=== PATIENT | male | born 1955 | race Caucasian/White ===

== ENCOUNTER 2016-10-08 08:00 | Day surgery (SDC) | payer OTHER ==
[2016-10-04 15:47] VITALS: BMI 31.9
[2016-10-08] MEDS ORDERED: DESFLURANE GAS 240 ML BOTTLE IH ONE (10:28)
[2016-10-08] MEDS ORDERED: IBUPROFEN 800 MG/8 ML IJ IVPB ONE (10:28)
[2016-10-08] MEDS ORDERED: BUPIVACAINE HCL/PF 0.5% (5MG/ML) 10 ML VIAL ONE (10:37)
--- NOTE | 2016-10-08 10:41 | HP ---
History & Physical Update - History History: No Change - Physical Physical: No Change - Assessment Assessment: No Change - Plan Plan: No Change
[2016-10-08] MEDS ORDERED: ROCURONIUM BROMIDE 50 MG/5 ML VIAL ONE (10:50)
[2016-10-08] MEDS ORDERED: PROPOFOL 20 ML ONE (10:50)
[2016-10-08] MEDS ORDERED: MIDAZOLAM HCL 2 MG/2 ML SINGLE DOSE VIAL ONE (10:51)
[2016-10-08] MEDS ORDERED: ceFAZolin SODIUM 1 GM VIAL ONE (11:16)
[2016-10-08] MEDS ORDERED: ceFAZolin SODIUM 1 GM VIAL IVPB ONE (11:18)
[2016-10-08] MEDS ORDERED: BUPIVACAINE HCL/PF 0.5% (5MG/ML) 10 ML VIAL IJ ONE (11:24)
[2016-10-08] MEDS ORDERED: GLYCOPYRROLATE 0.2 MG/1 ML VIAL ONE (11:50)
[2016-10-08] MEDS ORDERED: NEOSTIGMINE METHYLSULFATE 0.5 MG/ML - 10 ML MDV ONE (11:51)
[2016-10-08] MEDS ORDERED: oxyCODONE HCL 5 MG TABLET PO PRN (12:11)
[2016-10-08] MEDS ORDERED: ONDANSETRON 4 MG/2 ML VIAL IVPUSH PRN (12:11)
[2016-10-08] MEDS ORDERED: ACETAMINOPHEN 1000 MG/100 ML VIAL (NON FORMULARY) IVPB ONE (12:11)
[2016-10-08] MEDS ORDERED: LACTATED RINGERS SOLUTION 1,000 ML IV SCH (12:15)
[2016-10-08] MEDS ORDERED: ALBUTEROL SO4 0.083% IH SOL 2.5 MG/3 ML VIAL.NEB. NEB PRN (12:34)
[2016-10-08] MEDS ORDERED: ACETAMINOPHEN INJECTION 100 ML IVPB ONE (12:42)
[2016-10-08 14:11] VITALS: TEMP 97.8
[2016-10-08 15:50] VITALS: PULSE 77
[2016-10-08 15:54] VITALS: BP 117/60
--- NOTE | 2016-10-09 11:53 | OP ---
DATE OF OPERATION: 10/08/2016 PROCEDURE: Umbilical hernia repair with mesh. PREOPERATIVE DIAGNOSIS: Umbilical hernia. POSTOPERATIVE DIAGNOSIS: Umbilical hernia. SURGEON: Baltazar Whelan MD HOSPITAL COORDINATOR: CARLOS MANUEL Delong ANESTHESIA: General endotracheal. FINDINGS AND PROCEDURE: This is a 61-year-old male who presents with a bulge of the umbilicus which was about 3 cm in size, which was nonreducible. So, patient was advised elective umbilical hernia repair, and consent was obtained after discussing the risks, benefits, and alternatives to the procedure. Patient was brought to the operating room and placed in supine position. General endotracheal anesthesia was administered. The abdomen was prepped and draped in the usual sterile fashion. Using 0.5% Marcaine, local anesthesia was administered at the proposed incision site. A 3-cm vertical incision over the umbilicus was made using scalpel blade number 15 with dissection carried down to the subcutaneous tissue until the hernia sac was exposed. The further dissection was done using Bovie cautery around the hernia sac, down to the fascial defect. The hernia sac together with incarcerated small piece of omentum was amputated and ligated with Vicryl 0 ligature. The stump was then pushed back to the peritoneal cavity. The posterior abdominal wall was bluntly undermined using the forceps and the gauze. After that, a 2-1/2-inch diameter Ventralex ST hernia patch was deployed as an underlay mesh placement. The patch was anchored to each side of the fascia with Prolene 2-0 suture. This was also reinforced with single suture of Prolene 2-0 at the 12 o'clock and 6 o'clock position. After the deployment was deemed satisfactory, the wound was closed with interrupted dermal sutures using Vicryl 3-0 and continuous subcuticular suture using Biosyn 4-0. The wound closure was reinforced with Steri-Strips and covered with pressure dressing. The patient was successfully extubated and transferred to the postanesthesia care unit in satisfactory condition. Estimated blood loss was about 1 mL. Wound class clean. The patient received 2 g of Ancef prior to the start of the procedure. Tammy [id number]
--- NOTE | 2016-10-09 17:56 | PATH ---
Surgical Pathology Report Patient Name: MERCEDES WINN [facility]. Rec. #: [id number] /Age/Gender: 1955 (Age: 61) / M Account: [id number] Location: [facility] Taken: 10/08/2016 Received: 10/08/2016 Reported: 10/09/2016 Physicians: Baltazar Whelan M.D. Specimen(s) Received HERNIA SAC Clinical History Umbilical hernia Final Diagnosis HERNIA SAC, UMBILICAL HERNIA REPAIR: FOCALLY MESOTHELIUM LINED BENIGN FIBROMEMBRANOUS AND FIBROFATTY TISSUE WITH FOCI OF CHRONIC INFLAMMATION CONSISTENT WITH HERNIA SAC. Electronically Signed Keenan Roberson M.D. Gross Description Received in formalin labeled "hernia sac" is a 2.7 x 2.5 x 0.6 cm irregular portion of fibromembranous tissue with attached fat, consistent with a hernia sac. [employer] sections are submitted in one cassette. /10/08/2016 saudi/10/08/2016
--- NOTE | 2016-10-10 08:12 | SURG ---
Surgery Casey Saw Operator Note Casey Saw Operator: Coreen Stauffer PA-C Date of Service: 10/08/16 Diagnosis: umbilical hernia Procedure: umbilical hernia repair with mesh I was present for the entirety of the operative procedure. For further detail, please refer to operative report. Visit type - Case Type Case Type: Scheduled Admission - Emergency Emergency Visit: No - New patient This patient is new to me today: Yes Date on this admission: 10/10/16 - Critical Care Critical Care patient: No
== END 2016-10-08 15:30 | disposition home or self-care (01) ==
LOC: JASU-SURG 08:00
PROVIDERS: ATTEND Surgery
PROC: 0WUF0JZ Supplement Abdominal Wall with Synthetic Substitute, Open Approach (ICD-10-PCS; principal; 2016-10-08 11:00)
DX: K42.9 Umbilical hernia without obstruction or gangrene (principal); I10 Essential (primary) hypertension; E78.5 Hyperlipidemia, unspecified; I25.10 Atherosclerotic heart disease of native coronary artery without angina pectoris; K21.9 Gastro-esophageal reflux disease without esophagitis; Z95.5 Presence of coronary angioplasty implant and graft; J45.909 Unspecified asthma, uncomplicated; E11.9 Type 2 diabetes mellitus without complications
CPT/HCPCS: 88302-TC; 94760

== ENCOUNTER 2017-07-27 09:35 | Emergency (ER) | payer OTHER ==
[2017-07-27 09:55] VITALS: BP 159/92; PULSE 80; TEMP 98.7; BMI 31.9
--- NOTE | 2017-07-27 10:12 | PDOC ---
History of Present Illness - General Chief Complaint: Respiratory Stated Complaint: COUGH, SOB Time Seen by Provider: 07/27/17 10:02 History Source: Patient Exam Limitations: No Limitations (61y/o F with cough, sorethroat and nasal congestion X 2 days) Past History - Travel Traveled outside of the country in the last 30 days: No Close contact w/someone who was outside of country & ill: No - Past Medical History Allergies/Adverse Reactions: Allergies Allergy/AdvReac Type Severity Reaction Status Date / Time No Known Allergies Allergy Verified 07/27/17 09:47 Home Medications: Ambulatory Orders Amlodipine Besylate [Norvasc] 5 mg PO DAILY #0 tablet 04/04/11 Aspirin [Aspirin EC] 81 mg PO DAILY #0 tab.chew 05/29/11 Clopidogrel Bisulfate [Plavix -] 75 mg PO DAILY #0 tablet 05/29/11 Insulin (Levemir) [Levemir Flexpen -] 30 units SQ BID #0 units 05/29/11 Metoprolol Succinate [Toprol XL -] 25 mg PO DAILY #0 tab.sr.24h 05/29/11 Albuterol Sulfate [Proair Respiclick] 90 mcg IH Q6H 10/04/16 Insulin (Novolog) [Novolog Flexpen -] 36 units SQ ACHS 10/08/16 traMADol HCL [Ultram] 50 mg PO Q6H PRN #20 tablet MDD 4 10/08/16 Benzonatate [Tessalon Pearls -] 100 mg PO TID #21 capsule 07/27/17 Benzonatate [Tessalon Pearls -] 100 mg PO TID #21 capsule 07/27/17 Cetirizine HCl 10 mg PO DAILY #30 tablet 07/27/17 Loratadine 10 mg PO DAILY 30 Days #30 tab.rapdis 07/27/17 Olopatadine HCl [Patanol] 5 ml OP BID 30 Days #1 bottle 07/27/17 Olopatadine HCl [Patanol] 5 ml OP BID 30 Days #1 bottle 07/27/17 Anemia: No Asthma: Yes Cancer: No Cardiac Disorders: Yes (DC 2006) CVA: No COPD: No CHF: No Dementia: No Diabetes: Yes GI Disorders: No Disorders: No HTN: Yes Hypercholesterolemia: Yes Liver Disease: No Seizures: No Thyroid Disease: No - Surgical History Cardiac Surgery: Yes (X 3 STENTS) Orthopedic Surgery: Yes (BILAT SHOULDERS) - Suicide/Smoking/Psychosocial Hx Smoking Status: No Smoking History: Never smoked Number of Cigarettes Smoked Daily: 0 Hx Alcohol Use: No Drug/Substance Use Hx: No Substance Use Type: None Review of Systems - Review of Systems Is the patient limited Spanish proficient: No Constitutional: No: Chills, Fever HEENTM: Yes: Tearing (program), Throat Pain. No: See HPI, Eye Pain, Blurred Vision, Recent change in vision, Double Vision, Ear Pain ( underwent), Throat Swelling Respiratory: Yes: Cough, Productive cough. No: Orthopnea, Shortness of Breath ( 19), SOB with Exertion (location), SOB at Rest, Stridor, Wheezing Cardiac (ROS): No: Chest Pain, Irregular Heart Rate, Lightheadedness, Palpitations, Syncope ABD/GI: No: Abdominal Distended, Abd. Pain w/ defecation, Blood Streaked Bowels , Constipated : No: Burning, Dysuria *Physical Exam - Vital Signs Last Vital Signs Temp Pulse Resp BP Pulse Ox 98.7 F 80 18 159/92 99 07/27/17 09:45 07/27/17 09:45 07/27/17 09:45 07/27/17 09:45 07/27/17 09:45 - Physical Exam General Appearance: Yes: Nourished HEENT: positive: Tonsillar Erythema, Nasal Congestion (b/l conjunctiva injection ). negative: Pharyngeal Erythema, Tonsillar Exudate, Rhinorrhea Respiratory/Chest: positive: Lungs Clear, Normal Breath Sounds Cardiovascular: positive: Regular Rate, S1, S2 Gastrointestinal/Abdominal: positive: Normal Bowel Sounds Extremity: positive: Normal Capillary Refill Integumentary: positive: Normal Color, Dry Neurologic: positive: science faculty member II-XII NML intact, Fully Oriented, Alert Medical Decision Making - Medical Decision Making 07/27/17 10:11 Patient is a 61-year-old male with history of hypertension diabetes presents to the emergency room with productive cough sneezing nasal congestion and bilateral eye tearing for 2 days. Patient denies chest pain history of asthma, wheezing, CP or smoking 61y/o F with URI vs Allergic Rhinitis RS sent vss, pt otherwise well appearing, clear lungs antihistamine and tussive sent to pharmacy RS neg, salt water garble advised, motrin prn pain f/u with PCP for CXR if cough persist >5 days 07/27/17 10:32 07/27/17 10:49 *DC/Admit/Observation/Transfer Diagnosis at time of Disposition: Allergic rhinitis, URI, acute - Discharge Dispostion Disposition: HOME Condition at time of disposition: Stable - Prescriptions Prescriptions: Benzonatate [Tessalon Pearls -] 100 mg PO TID #21 capsule Benzonatate [Tessalon Pearls -] 100 mg PO TID #21 capsule Cetirizine HCl 10 mg PO DAILY #30 tablet Loratadine 10 mg PO DAILY 30 Days #30 tab.rapdis Olopatadine HCl [Patanol] 5 ml OP BID 30 Days #1 bottle Olopatadine HCl [Patanol] 5 ml OP BID 30 Days #1 bottle - Referrals Referrals: Julian Bain MD [Primary Care Provider] - - Patient Instructions Printed Discharge Instructions: Common Cold, Allergic Rhinitis Additional Instructions: I discussed the physical exam findings, ancillary test results and final diagnoses with the patient. I answered all of the patient's questions. The patient was satisfied with the care received and felt comfortable with the discharge plan and treatment plan. The patient will call their primary care physician within 24 hours to arrange follow-up and will return to the Emergency Department with any new, persistant or worsening symptoms. - Post Discharge Activity
--- NOTE | 2017-07-29 07:42 | PDOC ---
Patient Follow-up (Call Back) - Post ED Follow - Up Condition at time of discharge: Stable Disposition at time of original discharge: HOME Reason for Call Back: Abnwl. Microbiology (Throat culture pending organism. Rapid strep negative.)
== END 2017-07-27 10:44 | disposition home or self-care (01) ==
LOC: JERFT 09:35 → JER 09:35 → JERFT 10:44
DX: J30.9 Allergic rhinitis, unspecified (principal); J06.9 Acute upper respiratory infection, unspecified; I25.10 Atherosclerotic heart disease of native coronary artery without angina pectoris; I10 Essential (primary) hypertension; Z95.5 Presence of coronary angioplasty implant and graft; E11.9 Type 2 diabetes mellitus without complications; Z79.4 Long term (current) use of insulin; E78.00 Pure hypercholesterolemia, unspecified
CPT/HCPCS: 87070; 87077; 87430; 99281-25

== ENCOUNTER 2019-06-02 19:29 | Emergency (ER) | payer OTHER ==
[2019-06-02 19:59] VITALS: BP 179/90; PULSE 105; TEMP 98.2; BMI 31.4
--- NOTE | 2019-06-02 20:26 | PDOC ---
History of Present Illness - General Chief Complaint: Eye Problem Stated Complaint: EYE REDNESS Time Seen by Provider: 06/02/19 20:26 History Source: Patient - History of Present Illness Initial Comments: 06/02/19 20:40 Chief complaint: Exposure to dust Patient is 63-year-old male with a history of CAD, diabetes and hypertension who states he was cleaning his friend's attic, and he dropped something and the dust went up in his face. Patient states that his eyes were bothering him and he was coughing. He took a shower but his symptoms continue. Patient is not in any respiratory distress and is not having active coughing now. GENERAL/CONSTITUTIONAL: No fever, weakness. dizziness HEAD, EYES, EARS, NOSE AND THROAT: No change in vision. + Eye redness, no ear pain or discharge. No sore throat. CARDIOVASCULAR: No chest pain RESPIRATORY: No shortness of breath or cough GASTROINTESTINAL: No pain, nausea, vomiting, diarrhea or constipation GENITOURINARY: No dysuria MUSCULOSKELETAL: No neck or back pain SKIN: No rash NEUROLOGIC: No headache, vertigo, loss of consciousness, or loss of sensation. GENERAL: The patient is awake, alert, and fully oriented, in no acute distress. HEAD: Normal with no signs of trauma. EYES: Pupils equal, round and reactive to light, sclera anicteric, conjunctiva clear. Minimal redness to the distal eyelids bilaterally ENT: pharynx: no erythema, no exudate, uvula midline NECK: supple CHEST: clear, nontender, rr ABD: soft, nontender BACK: no tenderness or signs of injury EXTREMITIES: Normal range of motion, no edema. NEUROLOGICAL: Normal speech, normal gait. SKIN: Warm, Dry Past History - Past Medical History Allergies/Adverse Reactions: Allergies Allergy/AdvReac Type Severity Reaction Status Date / Time No Known Allergies Allergy Verified 06/02/19 19:59 Home Medications: Ambulatory Orders Amlodipine Besylate [Norvasc] 5 mg PO DAILY #0 tablet 04/04/11 Aspirin [Aspirin EC] 81 mg PO DAILY #0 tab.chew 05/29/11 Clopidogrel Bisulfate [Plavix -] 75 mg PO DAILY #0 tablet 05/29/11 Insulin (Levemir) [Levemir Flexpen -] 30 units SQ BID #0 units 05/29/11 Metoprolol Succinate [Toprol XL -] 25 mg PO DAILY #0 tab.sr.24h 05/29/11 Albuterol Sulfate [Proair Respiclick] 90 mcg IH Q6H 10/04/16 Insulin (Novolog) [Novolog Flexpen -] 36 units SQ ACHS 10/08/16 traMADol HCL [Ultram] 50 mg PO Q6H PRN #20 tablet MDD 4 10/08/16 Benzonatate [Tessalon Pearls -] 100 mg PO TID #21 capsule 07/27/17 Benzonatate [Tessalon Pearls -] 100 mg PO TID #21 capsule 07/27/17 Cetirizine HCl 10 mg PO DAILY #30 tablet 07/27/17 Loratadine 10 mg PO DAILY 30 Days #30 tab.rapdis 07/27/17 Olopatadine HCl [Patanol] 5 ml OP BID 30 Days #1 bottle 07/27/17 Olopatadine HCl [Patanol] 5 ml OP BID 30 Days #1 bottle 07/27/17 Anemia: No Asthma: Yes Cancer: No Cardiac Disorders: Yes ([place] 2006) CVA: No COPD: No CHF: No Dementia: No Diabetes: Yes GI Disorders: No Disorders: No HTN: Yes Hypercholesterolemia: Yes Liver Disease: No Seizures: No Thyroid Disease: No - Surgical History Cardiac Surgery: Yes (X 3 STENTS) Orthopedic Surgery: Yes (BILAT SHOULDERS) - Psycho Social/Smoking Cessation Hx Smoking Status: No Smoking History: Never smoked Have you smoked in the past 12 months: No Number of Cigarettes Smoked Daily: 0 Information on smoking cessation initiated: No Hx Alcohol Use: No Drug/Substance Use Hx: No Substance Use Type: None *Physical Exam - Vital Signs Last Vital Signs Temp Pulse Resp BP Pulse Ox 98.2 F 105 H 21 H 179/90 H 97 06/02/19 19:56 06/02/19 19:56 06/02/19 19:56 06/02/19 19:56 06/02/19 19:56 Medical Decision Making - Medical Decision Making 06/02/19 20:41 63-year-old male with history of diabetes, CAD, hypertension with exposure to dust while cleaning an attic. Patient took a shower but states his eyes continue to bother him. Patient states he has been coughing. Patient is not actively coughing now and has no signs of respiratory distress. Patient is driving home, cannot give Benadryl 2. We will put tetracaine in bilateral eyes to reduce discomfort. Given exposure, will give antibiotic ointment for the eyes. Will give patient supportive instructions for at home Discussed issues, findings, results, applicable medications and treatments and follow-up. All these were understood and all questions were answered Discharge - Discharge Information Problems reviewed: Yes Clinical Impression/Diagnosis: Environmental exposure Condition: Stable Disposition: HOME - Admission No - Follow up/Referral Referrals: Ramez Bain [Primary Care Provider] - - Patient Discharge Instructions Additional Instructions: Put the erythromycin ointment, half inch to both eyes, 3 times a day for the next 3 days. Follow-up with the alignment technician. You can take Claritin or Benadryl tonight for your symptoms at bedtime Return to the ER if worse, short of breath, any other concerns. Follow-up with your doctor - Post Discharge Activity
[2019-06-02] MEDS ORDERED: ERYTHROMYCIN 0.5% OPHTHALMIC OINTMENT 3.5 GM TUBE OU ONE (20:42)
[2019-06-02] MEDS ORDERED: ERYTHROMYCIN 0.5% OPHTHALMIC OINTMENT 3.5 GM TUBE ONE (20:43)
== END 2019-06-02 20:52 | disposition home or self-care (01) ==
LOC: JERFT 19:29
DX: Z77.29 Contact with and (suspected) exposure to other hazardous substances (principal); E11.9 Type 2 diabetes mellitus without complications; I25.10 Atherosclerotic heart disease of native coronary artery without angina pectoris; I10 Essential (primary) hypertension
CPT/HCPCS: 99283-25

== ENCOUNTER 2021-06-15 03:11 | Emergency (ER) | payer OTHER ==
[2021-06-15 03:45] VITALS: PULSE 83; TEMP 97.2; BMI 30.4
[2021-06-15 06:15] VITALS: BP 130/70
== END 2021-06-15 06:29 | disposition home or self-care (01) ==
LOC: JER 03:11
DX: I10 Essential (primary) hypertension (principal)
CPT/HCPCS: 99282-25

== ENCOUNTER 2022-12-23 07:43 | Inpatient (IN) | payer OTHER ==
[2022-12-23 07:50] VITALS: BMI 30.4
[2022-12-23 09:16] LABS: HEMOGLOBIN 14.5 GM/dL (11.7-16.9); MCH 32.1 pg (25.7-33.7); MCHC 34.4 g/dl (32.0-35.9); MEAN CELL VOLUME 93.3 fl (80-96); MEAN PLT VOLUME 8.4 fl (7.5-11.1); PLATELET COUNT 215 10^3/uL (134-434); RBC 4.51 M/mm3 (4.00-5.60)
[2022-12-23 09:21] LABS: INR 1.03 (0.83-1.09)
[2022-12-23 09:24] LABS: ACTIVATED PTT 27.7 SECONDS (25.2-36.5)
[2022-12-23] MEDS ORDERED: ACETAMINOPHEN 1000 MG/100 ML BAG IVPB ONE (09:28)
[2022-12-23 09:49] LABS: POTASSIUM 3.7 mmol/L (3.5-5.1)
[2022-12-23 09:52] LABS: ALBUMIN 3.6 g/dl (3.4-5.0); BLOOD UREA NITROGEN 10.4 mg/dL (7-18); CALCIUM 8.5 mg/dL (8.5-10.1); MAGNESIUM 1.9 mg/dL (1.8-2.4)
[2022-12-23 09:55] LABS: ANISOCYTOSIS 0; HELMET CELLS 0; HOWELL-JOLLY BODIES 0; MACROCYTOSIS 0; OVALOCYTE 0; ROULEAU 0; SICKELED CELLS 0; TARGET CELLS 0; TEAR DROP CELLS 0; TOXIC GRANULATION 0
[2022-12-23 09:56] LABS: BILIRUBIN,TOTAL 0.4 mg/dL (0.2-1)
[2022-12-23 09:57] LABS: CREATININE 0.7 mg/dL (0.55-1.3)
[2022-12-23] MEDS ORDERED: CLOPIDOGREL BISULFATE 75 MG TABLET (FP) PO SCH (14:45)
[2022-12-23] MEDS ORDERED: amLODIPine BESYLATE 5 MG TABLET (FP) PO SCH (14:45)
[2022-12-23] MEDS ORDERED: ASPIRIN COATED 81 MG TABLET.EC PO SCH (14:45)
[2022-12-23] MEDS ORDERED: metoPROLOL SUCCINATE 25 MG TAB.SR.24H (FP) PO SCH (14:45)
[2022-12-23] MEDS: amLODIPine BESYLATE 5 MG TABLET (FP) PO SCH (16:22)
[2022-12-23] MEDS: CLOPIDOGREL BISULFATE 75 MG TABLET (FP) PO SCH (16:22)
[2022-12-23] MEDS: ASPIRIN COATED 81 MG TABLET.EC PO SCH (16:22)
[2022-12-23] MEDS: metoPROLOL SUCCINATE 25 MG TAB.SR.24H (FP) PO SCH (16:22)
[2022-12-23] MEDS: ACETAMINOPHEN 325 MG TABLET (FP) PO PRN (17:11)
[2022-12-23] MEDS: INSULIN (LEVEMIR) 100 UNITS/ML UNITS SQ SCH (21:39)
[2022-12-24] MEDS: INSULIN (LEVEMIR) 100 UNITS/ML UNITS SQ SCH ×2 (06:50→21:53)
[2022-12-24 09:21] LABS: HEMATOCRIT 41.1 % (35.4-49); HEMOGLOBIN 14.4 GM/dL (11.7-16.9); MCH 32.5 pg (25.7-33.7); MCHC 34.9 g/dl (32.0-35.9); MEAN CELL VOLUME 92.9 fl (80-96); MEAN PLT VOLUME 8.4 fl (7.5-11.1); PLATELET COUNT 205 10^3/uL (134-434); RBC 4.42 M/mm3 (4.00-5.60); WHITE BLOOD COUNT 8.5 K/mm3 (4.0-10.0)
[2022-12-24 09:48] LABS: POTASSIUM 4.1 mmol/L (3.5-5.1)
[2022-12-24 09:54] LABS: ALBUMIN 3.4 g/dl (3.4-5.0); BLOOD UREA NITROGEN 13.3 mg/dL (7-18); CALCIUM 8.7 mg/dL (8.5-10.1)
[2022-12-24 09:56] LABS: CREATININE 0.7 mg/dL (0.55-1.3)
[2022-12-24 09:58] LABS: BILIRUBIN,TOTAL 0.4 mg/dL (0.2-1); TOT PROT 6.7 g/dl (6.4-8.2)
[2022-12-24 10:08] LABS: ANISOCYTOSIS 0; HELMET CELLS 0; HOWELL-JOLLY BODIES 0; MACROCYTOSIS 0; OVALOCYTE 0; ROULEAU 0; SICKELED CELLS 0; TARGET CELLS 0; TEAR DROP CELLS 0; TOXIC GRANULATION 0
[2022-12-24] MEDS: ENOXAPARIN NA (PORCINE) 40 MG/0.4 ML DISP.SYRIN SQ SCH (10:13)
[2022-12-24] MEDS: ASPIRIN COATED 81 MG TABLET.EC PO SCH (10:13)
[2022-12-24] MEDS: CLOPIDOGREL BISULFATE 75 MG TABLET (FP) PO SCH (10:14)
[2022-12-24] MEDS: amLODIPine BESYLATE 5 MG TABLET (FP) PO SCH (10:14)
[2022-12-24] MEDS: metoPROLOL SUCCINATE 25 MG TAB.SR.24H (FP) PO SCH (10:14)
[2022-12-24] MEDS: PANTOPRAZOLE 40 MG TABLET PO SCH (10:14)
[2022-12-25] MEDS: INSULIN (LEVEMIR) 100 UNITS/ML UNITS SQ SCH ×2 (06:07→23:19)
[2022-12-25 08:58] VITALS: RESP 18
[2022-12-25] MEDS: ENOXAPARIN NA (PORCINE) 40 MG/0.4 ML DISP.SYRIN SQ SCH (09:18)
[2022-12-25] MEDS: amLODIPine BESYLATE 5 MG TABLET (FP) PO SCH (09:19)
[2022-12-25] MEDS: CLOPIDOGREL BISULFATE 75 MG TABLET (FP) PO SCH (09:19)
[2022-12-25] MEDS: metoPROLOL SUCCINATE 25 MG TAB.SR.24H (FP) PO SCH (09:19)
[2022-12-25] MEDS: ASPIRIN COATED 81 MG TABLET.EC PO SCH (09:19)
[2022-12-25] MEDS: PANTOPRAZOLE 40 MG TABLET PO SCH (09:19)
[2022-12-25] MEDS: ACETAMINOPHEN 325 MG TABLET (FP) PO PRN (18:00)
[2022-12-25] MEDS ORDERED: ATORVASTATIN CA 20 MG TABLET (FP) PO SCH (22:00)
[2022-12-26] MEDS: INSULIN (LEVEMIR) 100 UNITS/ML UNITS SQ SCH (06:42)
[2022-12-26 09:00] VITALS: BP 151/77; PULSE 76; TEMP 97.7
[2022-12-26] MEDS: CLOPIDOGREL BISULFATE 75 MG TABLET (FP) PO SCH (09:17)
[2022-12-26] MEDS: ASPIRIN COATED 81 MG TABLET.EC PO SCH (09:17)
[2022-12-26] MEDS: ENOXAPARIN NA (PORCINE) 40 MG/0.4 ML DISP.SYRIN SQ SCH (09:17)
[2022-12-26] MEDS: amLODIPine BESYLATE 5 MG TABLET (FP) PO SCH (09:17)
[2022-12-26] MEDS: metoPROLOL SUCCINATE 25 MG TAB.SR.24H (FP) PO SCH (09:17)
[2022-12-26] MEDS: PANTOPRAZOLE 40 MG TABLET PO SCH (09:17)
[2022-12-26 10:04] LABS: CHOLESTEROL 153 mg/dL (50-200)
[2022-12-26 10:05] LABS: LDL CHOLESTEROL (ONLY SJRH) 96 mg/dL (5-100)
[2022-12-26 10:07] LABS: HDL CHOLESTEROL 36 mg/dL (40-60)
== END 2022-12-26 15:24 | disposition home or self-care (01) | DRG 303 ==
LOC: JER 07:43 → JERBED 10:16 → J4S 12:02 → OBSVTOIN 14:44
PROVIDERS: ADMIT Internal Medicine; ATTEND Internal Medicine
DX: I25.10 Atherosclerotic heart disease of native coronary artery without angina pectoris (principal); R00.2 Palpitations; I10 Essential (primary) hypertension; E78.00 Pure hypercholesterolemia, unspecified; I25.2 Old myocardial infarction; E11.9 Type 2 diabetes mellitus without complications; Z95.5 Presence of coronary angioplasty implant and graft
CPT/HCPCS: 0241U-QW; 36415; 71045-TC-FY; 80053; 80061; 82962; 83036; 83735; 83880; 84443; 84484; 85025; 85610; 85730; 86850; 86900; 86901; 93005; 93010; 93306-TC; 99285-25; G0378